=== PATIENT | male | born 1965 | race Two or more races ===

== ENCOUNTER 2024-05-06 19:34 | Emergency (ER) | payer OTHER ==
[~2024-05-06] VITALS: Ht 167.6 cm; Wt 83.9 kg
[2024-05-06] MEDS ORDERED: AMLODIPINE-OLM1 EAC2 (19:47)
[2024-05-06] MEDS ORDERED: LOSARTAN POTAS100 MG PO (19:47)
[2024-05-06] MEDS ORDERED: cloNIDine HCL 0.2 MG TABLET PO STA (20:51)
[2024-05-06] MEDS ORDERED: KETOROLAC TROMETHAMINE 60 MG VIAL IM STA (20:52)
[2024-05-06] MEDS ORDERED: KETOROLAC TROMETHAMINE 60 MG VIAL IM ONE (21:20)
[2024-05-06] MEDS ORDERED: CLONIDINE HCL 0.1 MG TABLET PO ONE (21:20)
== END 2024-05-06 22:30 | disposition home or self-care (01) ==
LOC: ER 19:36
DX: I10 Essential (primary) hypertension (principal)